=== PATIENT | female | born 1965 | race African-American/Black ===

== ENCOUNTER 2016-10-05 12:40 | Emergency (ER) | payer OTHER ==
[2016-10-05 12:54] VITALS: BP 124/84; PULSE 96; TEMP 99; BMI 32.8
--- NOTE | 2016-10-05 13:08 | PDOC ---
History of Present Illness - General Chief Complaint: Injury Stated Complaint: RT KNEE PAIN Time Seen by Provider: 10/05/16 12:42 History Source: Patient Exam Limitations: No Limitations - History of Present Illness Initial Comments: 10/05/16 13:37 This is a 50-year-old female with reportedly no past medical history presented to emergency department with a complaint of right knee pain. Patient works as an aide at [employer], states she tripped over the brakes on a stretcher, lost her balance and fell onto her right knee, striking the end of the bed. Subsequent to falling she was unable to get up. She was given 2 Tylenol by the staff She states she has not been able to ambulate 10/05/16 13:49 PMH: pt denies (per chart review HTN) PSH: denies Meds: denies ALL: NKDA Social: denies alcohol, drugs, cigarettes GENERAL/CONSTITUTIONAL: No: fever, chills, weakness, loss of appetite. HEAD, EYES, EARS, NOSE AND THROAT: No: change in vision, ear pain, discharge, sore throat, throat swelling. MUSCULOSKELETAL: Yes: right knee swelling and pain No: back pain, neck pain, joint pain, muscle swelling or pain SKIN : No: bruising or laceration GENERAL: The patient is in no acute distress. EXTREMITIES: RIGHT KNEE TENDERNESS, UNABLE TO FLEX RIGHT KNEE, diffusely tendern to palpation Stable to anterior and posterior drawer Popliteal, DP, PT 2+ Compartments soft NEUROLOGICAL: Cranial nerves II through XII grossly intact. Normal speech. No focal neurological deficits. MUSCULOSKELETAL: See above SKIN: No erythema, no lacerations or abrasions Past History - Past Medical History Allergies/Adverse Reactions: Allergies Allergy/AdvReac Type Severity Reaction Status Date / Time No Known Allergies Allergy Verified 10/05/16 12:42 Home Medications: Ambulatory Orders Acetaminophen [Tylenol -] 1,000 mg PO ONCE PRN 10/05/16 Methocarbamol [Robaxin -] 500 mg PO TID PRN #21 tablet 10/05/16 Oxycodone HCl/Acetaminophen [Percocet 5-325 mg Tablet -] 1 tab PO Q6H PRN #10 tablet MDD 4 10/05/16 HTN: Yes - Psycho/Social/Smoking Cessation Hx Anxiety: No Suicidal Ideation: No Smoking History: Never smoked Have you smoked in the past 12 months: No Information on smoking cessation initiated: No Hx Alcohol Use: No Drug/Substance Use Hx: No Substance Use Type: None *Physical Exam - Vital Signs Last Vital Signs Temp Pulse Resp BP Pulse Ox 99 F 96 H 20 124/84 100 10/05/16 12:41 10/05/16 12:41 10/05/16 12:41 10/05/16 12:41 10/05/16 12:41 Medical Decision Making - Medical Decision Making 10/05/16 13:56 Will do xray knee Will give pain medications Will re assess 10/05/16 14:51 Xray does not demonstrate fracture or dislocation Will apply david wrap Will discharge to follow up with ortho Return to the ER for any other concerns or complaints *DC/Admit/Observation/Transfer Diagnosis at time of Disposition: Knee pain, acute Qualifiers: Laterality: right Qualified Code(s): M25.561 - Pain in right knee - Discharge Dispostion Disposition: HOME Condition at time of disposition: Stable Admit: No - Prescriptions Prescriptions: Ibuprofen [Motrin -] 600 mg PO TID PRN #21 tablet PRN Reason: Pain Methocarbamol [Robaxin -] 500 mg PO TID PRN #21 tablet PRN Reason: Pain - Referrals Referrals: Meet Lange MD [Staff Physician] - - Patient Instructions Printed Discharge Instructions: DI for Knee Pain, DI for Knee Sprain Additional Instructions: Thank you for coming in to the ER today You xray shows that you have a joint effusion, and possibly injured a ligament or cartilage You will need follow up imaging, and MRI of your knee Please apply ice, and elevate your leg. Please avoid any additional trauma to your knee or leg. You should wear a knee immobilizer and use crutches to ambulate Please make your appointment with Orthopedics today Please return to the emergency department for any new symptoms, or progression of your symptoms. Please take medications as prescribed - Post Discharge Activity Work/School Note: Back to Work
[2016-10-05] MEDS ORDERED: OXYCODONE/APAP 5/325MG COMBO TABLET PO ONE (13:36)
[2016-10-05] MEDS ORDERED: OXYCODONE/APAP 5/325MG COMBO TABLET ONE (13:48)
== END 2016-10-05 15:25 | disposition home or self-care (01) ==
LOC: FER 12:40
DX: M25.561 Pain in right knee (principal); W18.40XA Slipping, tripping and stumbling without falling, unspecified, initial encounter; Y93.89 Activity, other specified; Y92.129 Unspecified place in nursing home as the place of occurrence of the external cause; I10 Essential (primary) hypertension
CPT/HCPCS: 73562-TC-RT; 99282-25